=== PATIENT | female | born 2000 | race Caucasian/White ===

== ENCOUNTER 2025-04-30 13:43 | Emergency (ER) | payer BC ==
[2025-04-30 14:16] LABS: BASOPHILS ABSOLUTE AUTO 0.06 K/uL (0.00-0.20); BASOPHILS PERCENT AUTO 0.5 % (0.0-1.0); EOSINOPHILS ABSOLUTE AUTO 0.39 K/uL (0.00-0.45); EOSINOPHILS PERCENT AUTO 3.2 % (0.0-6.0); IMMATURE GRAN ABSOLUTE AUTO 0.02 K/uL (0.00-0.05); IMMATURE GRAN PERCENT AUTO 0.2 % (0.0-0.4); LYMPHOCYTES ABSOLUTE AUTO 3.44 K/uL (1.00-4.80); LYMPHOCYTES PERCENT AUTO 28.3 % (24.0-44.0); MEAN PLATELET VOLUME 9.3 fL (9.4-12.3); MONOCYTES ABSOLUTE AUTO 0.71 K/uL (0.00-0.80); MONOCYTES PERCENT AUTO 5.8 % (0.0-8.0); NEUTROPHILS ABSOLUTE AUTO 7.52 K/uL (1.80-7.70); NEUTROPHILS PERCENT AUTO 62.0 % (41.0-71.0); NRBC ABSOLUTE 0.00 K/uL (0.00-0.02); NRBC PERCENT 0.0 /100WBC (0.0-0.2); PLATELET COUNT,PLT 255 K/uL (150-400); RED BLOOD CELL COUNT 4.80 M/uL (4.10-5.30); WHITE BLOOD CELL COUNT,WBC 12.14 K/uL (3.9-11.3)
[2025-04-30 14:21] LABS: APPEARANCE,URINE SLT CLOUDY; GLUCOSE,URINE NEGATIVE (NEGATIVE); OCCULT BLOOD,URINE MODERATE (NEGATIVE)
[2025-04-30 14:31] LABS: A/G RATIO 1.2 (0.9-1.6); ALANINE AMINOTRANSFERASE,ALT 40.0 IU/L (14-63); ASPARTATE AMNIOTRANSFERASE,AST 30.0 IU/L (15-37); BILIRUBIN TOTAL 0.8 mg/dL (0.2-1.0); BLOOD UREA NITROGEN,BUN 8.0 mg/dL (7.0-18.0); CARBON DIOXIDE,CO2 26.3 mmol/L (21.0-32.0); CHLORIDE,CL 101.0 mmol/L (98-107); CREATININE 0.8 mg/dL (0.6-1.0); EST CRCL DRUG DOSING (CG) 87.24 mL/min; GLUCOSE RANDOM 87.0 mg/dL (74-106); POTASSIUM,K 4.1 mmol/L (3.5-5.1); PROTEIN TOTAL,TP 7.6 g/dL (6.4-8.2); SODIUM,NA 137.0 mmol/L (136-145)
[2025-04-30 14:34] LABS: EPITHELIAL CELLS,URINE MODERATE (NONE-FEW)
[2025-04-30 14:35] LABS: YEAST,URINE OCCASIONAL
[2025-04-30 14:37] LABS: ESTIMATED GFR 107.0 mL/min (>60)
== END 2025-04-30 17:09 | disposition home or self-care (01) ==
LOC: MW.ED 13:43
DX: O20.0 Threatened abortion (principal); Z79.899 Other long term (current) drug therapy; Z3A.01 Less than 8 weeks gestation of pregnancy
CPT/HCPCS: 36415; 76817; 80053; 81001; 84702; 85025; 86900; 86901; 99284; J2791; 99283